=== PATIENT | female | born 1930 | race Caucasian/White ===

== ENCOUNTER 2017-02-13 06:24 | Inpatient (IN) | payer MEDICARE, BC ==
[2017-02-13] VITALS (8 sets, daily range): BP systolic 107–138; BP diastolic 44–75
[~2017-02-13] VITALS: Ht 160 cm; Wt 61.2 kg
[~2017-02-13 06:24] MED LIST changes: -CEPH250C11 PO; -CYA1000 PO; -DOCU-416 PO; -NAPR220C12 PO; -PANT40TA65 PO
[2017-02-13] MEDS ORDERED: EMS NS 0.9%(*) 1000 ML BAG 1,000 ML IV ONE (06:35)
--- NOTE | 2017-02-13 06:45 | ER Report ---
History and Physical Time Seen By MD: 06:33 Hx. of Stated Complaint: Fall walking back from bathroom. Laceration to head. Large amount of blood loss on scene. Patient arrives on backboard with c-collar in place (UNRULY VARGAS MD) HPI/ROS CHIEF COMPLAINT: fall with head injury HISTORY OF PRESENT ILLNESS: This is an 87 year old female. She fell while walking from the bathroom. She only complains of pain on the top of her head. Has a large amount of blood and injury to top of head. Denies other pain. She is alert and oriented. Denies visual changes. No pain in back. No pain in chest or abdomen. No pain in arms or legs. EMS responded and she is on a backboard and cervical collar in place. (UNRULY VARGAS MD) Allergies: Coded Allergies: No Known Drug Allergies (Unverified , 02/13/17) Home Meds Reported Medications Naproxen Sodium (ALEVE) 220 Mg Capsule, 220 MG PO TID Y for PAIN, CAPSULE 02/13/17 Pantoprazole Sodium (PANTOPRAZOLE SODIUM) 40 Mg Tablet.dr, 40 MG PO BID, TAB.SR 02/13/17 Cephalexin Monohydrate (CEPHALEXIN) 250 Mg Cap, 250 MG PO QDAY, CAP 02/13/17 Docusate Sodium (COLACE) 100 Mg Capsule, 100 MG PO, CAPSULE 02/13/17 Citalopram Hydrobromide (CITALOPRAM HBR) 20 Mg Tablet, 40 MG PO QDAY, #5 TAB 02/13/17 Cyanocobalamin (Vitamin B-12) (VITAMIN B-12) 1,000 Mcg Tablet, 1000 MCG PO 02/13/17 Polyethylene Glycol 3350 (MIRALAX) 17 Gm Powd.pack, 0.5 PACK PO QDAY 11/24/14 Amlodipine Besylate (AMLODIPINE BESYLATE) 5 Mg Tablet, 1 TAB PO QDAY, TAB 11/24/14 Aspirin (ASPIR 81) 81 Mg Tablet.dr, 1 TAB PO QDAY, TAB 11/24/14 Mirabegron (MYRBETRIQ) 25 Mg Tab.er.24h, 1 TAB PO QDAY 11/24/14 Trazodone Hcl (TRAZODONE HCL) 50 Mg Tablet, 1 TAB PO QHS 11/24/14 Hydralazine Hcl (HYDRALAZINE HCL) 25 Mg Tablet, 1 TAB PO QDAY, TAB 11/24/14 Acetaminophen (ACETAMINOPHEN) 500 Mg Tablet, 1 TAB PO TID, TAB 11/24/14 Tramadol Hcl (TRAMADOL HCL) 50 Mg Tablet, 1 TAB PO Q8H 11/24/14 Cholecalciferol (Vitamin D3) (VITAMIN D) 1,000 Unit Tablet, 1 TAB PO QDAY 11/24/14 Tamoxifen Citrate (TAMOXIFEN CITRATE) 20 Mg Tablet, 1 TAB PO QDAY 11/24/14 Discontinued Reported Medications Omeprazole (OMEPRAZOLE) 20 Mg Capsule.dr, 1 CAP PO QDAY, CAP 11/24/14 Citalopram Hydrobromide (CITALOPRAM HBR) 20 Mg Tablet, 1 TAB PO QDAY, #5 TAB 11/24/14 Reviewed Nurses Notes: Yes (UNRULY VARGAS MD) Constitutional Vital Sign - Last 24 Hours 02/13/17 02/13/17 02/13/17 02/13/17 06:24 06:24 06:30 06:39 Temp 97.4 Pulse 92 88 Resp 16 13 B/P (MAP) 124/74 124/74 (91) 131/66 (87) Pulse Ox 93 95 02/13/17 02/13/17 02/13/17 02/13/17 06:40 06:50 06:54 07:10 Pulse 86 Resp 15 B/P (MAP) 125/97 (106) 125/76 (92) 146/75 (98) Pulse Ox 92 02/13/17 02/13/17 02/13/17 07:15 07:20 07:30 Pulse 82 84 Resp 27 20 B/P (MAP) 123/49 (73) 108/52 (70) Pulse Ox 94 92 (CODY OCONNOR MD) Physical Exam General Appearance: The patient is alert. She is in no acute distress. Eyes: Pupils equal and round, no injection. Reactive to light. Extraocular movements intact. ENT: No dental or oral trauma. Respiratory: Chest is non-tender to palpation. Cardiac: Regular rate and rhythm. Gastrointestinal: Soft and non tender, there is no evidence of external or internal trauma by exam. Neurological: GCS 15. Alert and oriented x4. No focal deficits. Skin: Sever scalp laceration. Musculoskeletal: Head: Tender throughout the top of her scalp. Neck: The patient arrived in a cervical collar. The cervical spine is non-tender. Back: There is no thoracic or lumbar spine or paraspinal tenderness. Pelvis: Non-tender, no laxity with pelvic pressure. Extremities: Non tender to palpation. Full range of motion of the joints. DIFFERENTIAL DIAGNOSIS: After history and physical exam differential diagnosis was considered for trauma in a fall with head injury and severe scalp laceration. (UNRULY VARGAS MD) Medical Decision Making Data Points Result Diagram: 02/15/17 0600 02/15/17 0600 Laboratory Hematology Test 02/13/17 06:19 Red Blood Count 4.25 M/uL (4.17-5.56) Mean Corpuscular Volume 94.1 fL (80.0-96.0) Mean Corpuscular Hemoglobin 31.9 pg (26.0-33.0) Mean Corpuscular Hemoglobin Concent 33.9 g/dL (32.0-36.0) Red Cell Distribution Width 14.1 % (11.5-14.5) Mean Platelet Volume 8.6 fL (7.2-11.1) Neutrophils (%) (Auto) 36.8 % (39.4-72.5) Lymphocytes (%) (Auto) 52.6 % (17.6-49.6) Monocytes (%) (Auto) 7.1 % (4.1-12.4) Eosinophils (%) (Auto) 3.0 % (0.4-6.7) Basophils (%) (Auto) 0.5 % (0.3-1.4) Nucleated RBC Relative Count (auto) 0.1 /100WBC Neutrophils # (Auto) 2.4 K/uL (2.0-7.4) Lymphocytes # (Auto) 3.4 K/uL (1.3-3.6) Monocytes # (Auto) 0.5 K/uL (0.3-1.0) Eosinophils # (Auto) 0.2 K/uL (0.0-0.5) Basophils # (Auto) 0.0 K/uL (0.0-0.1) Nucleated RBC Absolute Count (auto) 0.01 K/uL Prothrombin Time 13.6 seconds (12.0-14.4) Prothromb Time International Ratio 1.04 Activated Partial Thromboplast Time 35 seconds (23-35) Sodium Level 135 mmol/L (137-145) Potassium Level 4.3 mmol/L (3.5-5.0) Chloride Level 101 mmol/L (98-107) Carbon Dioxide Level 24 mmol/L (22-31) Blood Urea Nitrogen 23 mg/dl (7-18) Creatinine 1.10 mg/dl (0.52-1.04) Glomerular Filtration Rate Calc 46.9 Random Glucose 113 mg/dl (75-110) Calcium Level 8.9 mg/dl (8.4-10.2) Chemistry Test 02/13/17 06:19 White Blood Count 6.5 k/uL (4.5-11.0) Red Blood Count 4.25 M/uL (4.17-5.56) Hemoglobin 13.6 g/dL (12.0-16.0) Hematocrit 40.0 % (34.0-47.0) Mean Corpuscular Volume 94.1 fL (80.0-96.0) Mean Corpuscular Hemoglobin 31.9 pg (26.0-33.0) Mean Corpuscular Hemoglobin Concent 33.9 g/dL (32.0-36.0) Red Cell Distribution Width 14.1 % (11.5-14.5) Platelet Count 200 K/uL (150-450) Mean Platelet Volume 8.6 fL (7.2-11.1) Neutrophils (%) (Auto) 36.8 % (39.4-72.5) Lymphocytes (%) (Auto) 52.6 % (17.6-49.6) Monocytes (%) (Auto) 7.1 % (4.1-12.4) Eosinophils (%) (Auto) 3.0 % (0.4-6.7) Basophils (%) (Auto) 0.5 % (0.3-1.4) Nucleated RBC Relative Count (auto) 0.1 /100WBC Neutrophils # (Auto) 2.4 K/uL (2.0-7.4) Lymphocytes # (Auto) 3.4 K/uL (1.3-3.6) Monocytes # (Auto) 0.5 K/uL (0.3-1.0) Eosinophils # (Auto) 0.2 K/uL (0.0-0.5) Basophils # (Auto) 0.0 K/uL (0.0-0.1) Nucleated RBC Absolute Count (auto) 0.01 K/uL Prothrombin Time 13.6 seconds (12.0-14.4) Prothromb Time International Ratio 1.04 Activated Partial Thromboplast Time 35 seconds (23-35) Glomerular Filtration Rate Calc 46.9 Calcium Level 8.9 mg/dl (8.4-10.2) Coagulation Test 02/13/17 06:19 Prothrombin Time 13.6 seconds Prothromb Time International Ratio 1.04 Activated Partial Thromboplast Time 35 seconds (CODY OCONNOR MD) EKG/Imaging Imaging HEAD W/O CONTRAST EXAMINATION: CT head/brain without contrast HISTORY: Trauma TECHNIQUE: Contiguous axial images were obtained from the skull base to the vertex without intravenous contrast. One of the following dose optimization techniques was utilized in the performance of this exam: Automated exposure control; adjustment of the mA and/ or kV according to the patient's size; or use of an iterative reconstruction technique. Specific details can be referenced in the facility's radiology CT exam operational policy. COMPARISON STUDIES: None FINDINGS: Ventricles/sulci/fissures: Midline in position and normal in configuration Masses/hemorrhage/midline shift: No parenchymal hemorrhage White matter: No white matter edema or contusion Rice-white differentiation: No cortical edema or contusion change Extra-axial spaces: No subdural or epidural fluid collections. No subarachnoid blood Dural venous sinuses/arterial structures: Negative Skull base/calvarium: Severe scalp laceration with over 8 cm defect in the scalp in its upper vertex aspect anteriorly extending to the right posterior parietal aspect of the skull. Large hematoma noted in the posterior aspect of the right upper skull. Air within the soft tissues. No underlying calvarial fracture Visualized mastoid air cells/paranasal sinuses: Negative IMPRESSION: 1. Negative CT scanner the head for acute intracranial pathology. Significant scalp laceration extending and exposing over 8 cm of the skull. Report Dictated By: Valdemar Michaels MD at 02/13/2017 7:44 AM C-SPINE W/O CONTRAST EXAMINATION: CT cervical spine Additional pertinent history: Fall COMPARISON STUDIES: None One of the following dose optimization techniques was utilized in the performance of this exam: Automated exposure control; adjustment of the mA and/ or kV according to the patient's size; or use of an iterative reconstruction technique. Specific details can be referenced in the facility's radiology CT exam operational policy. TECHNIQUE: Axial images were obtained from the skull base through the upper thoracic spine without IV contrast administration. Coronal and sagittal reformatted images were obtained from the axial source data. FINDINGS: Prevertebral soft tissues: Negative Alignment: Degenerative retrolisthesis of C5 with respect to C4 by 2 mm. Vertebral bodies: Pedicle fusion changes from the C1-2 through the C3-4 levels. Posterior elements: Fusion changes in the upper cervical spine. No obvious acute fracture. Fusion of the facet joints in the upper spine with significant degenerative ankylosing changes noted throughout the facet joints. Disc spaces: Diffuse disc degenerative changes throughout the cervical spine. Visualized soft tissues anterior neck: Negative Visualized lung/mediastinum: Negative IMPRESSION: Negative cervical spine for acute bony pathology. Postoperative fusion changes in the upper cervical spine as described. Report Dictated By: Valdemar Michaels MD at 02/13/2017 7:58 AM (UNRULY VARGAS MD) ED Course/Re-evaluation Decision to Disposition Date: Feb 13, 2017 Decision to Disposition Time: 09:00 (UNRULY VARGAS MD) ED Course 02/13/2017 8:34:[address] Jame zavala to discuss OR for repair of extensive scalp degloving. (CODY OCONNOR MD) Depart Departure Latest Vital Signs Vital Signs Date Time Temp Pulse Resp B/P (MAP) Pulse Ox O2 Delivery O2 Flow Rate FiO2 02/13/17 07:30 84 20 108/52 (70) 92 02/13/17 06:24 97.4 (CODY OCONNOR MD) Impression: Primary Impression: Scalp laceration Condition: Condition Unchanged Disposition: Admitted from ER Problem Qualifiers Primary Impression: Scalp laceration Encounter type: initial encounter Qualified Codes: S01.01XA - Laceration without foreign body of scalp, initial encounter UNRULY VARGAS MD Feb 13, 2017 06:45 CODY OCONNOR MD Feb 13, 2017 08:35
[2017-02-13] MEDS ORDERED: CYA1000 PO (06:55)
[2017-02-13] MEDS ORDERED: PANT40TA65 PO (06:55)
[2017-02-13] MEDS ORDERED: CEPH250C11 PO (06:55)
[2017-02-13] MEDS ORDERED: NAPR220C12 PO (06:55)
[2017-02-13] MEDS ORDERED: CITA-139 PO (06:55)
[2017-02-13] MEDS ORDERED: DOCU-416 PO (06:55)
[2017-02-13 07:49] LABS: PLATELET COUNT, AUTOMATED 200 K/uL (150-450)
[2017-02-13 07:55] LABS: INR 1.04
--- NOTE | 2017-02-13 08:02 | RADIOLOGY IMAGING REPORT ---
FACILITY: [facility] PATIENT NAME: Sabra Orozco : 1930 MR: [id number] V: [id number] EXAM DATE: ORDERING PHYSICIAN: UNRULY VARGAS TECHNOLOGIST: Location: [facility] Patient: Sabra Orozco : 1930 Visit/Account:[id number] Date of Sevice: 02/13/2017 HEAD W/O CONTRAST EXAMINATION: CT head/brain without contrast HISTORY: Trauma TECHNIQUE: Contiguous axial images were obtained from the skull base to the vertex without intravenou s contrast. One of the following dose optimization techniques was utilized in the performance of this exam: Autom ated exposure control; adjustment of the mA and/or kV according to the patient's size; or use of an i terative reconstruction technique. Specific details can be referenced in the facility's radiology C T exam operational policy. COMPARISON STUDIES: None FINDINGS: Ventricles/sulci/fissures: Midline in position and normal in configuration Masses/hemorrhage/midline shift: No parenchymal hemorrhage White matter: No white matter edema or contusion Rice-white differentiation: No cortical edema or contusion change Extra-axial spaces: No subdural or epidural fluid collections. No subarachnoid blood Dural venous sinuses/arterial structures: Negative Skull base/calvarium: Severe scalp laceration with over 8 cm defect in the scalp in its upper vertex aspect anteriorly extending to the right posterior parietal aspect of the skull. Large hematoma noted in the posterior aspect of the right upper skull. Air within the soft tissues. No underlying calvari al fracture Visualized mastoid air cells/paranasal sinuses: Negative IMPRESSION: 1. Negative CT scanner the head for acute intracranial pathology. Significant scalp laceration extend ing and exposing over 8 cm of the skull. Report Dictated By: Valdemar Michaels MD at 02/13/2017 7:44 AM Report E-Signed By: Valdemar Michaels MD at 02/13/2017 7:58 AM WSN:[id number]
--- NOTE | 2017-02-13 08:05 | RADIOLOGY IMAGING REPORT ---
FACILITY: [facility] [place] PATIENT NAME: Sabra Orozco : 1930 MR: [id number] V: [id number] EXAM DATE: ORDERING PHYSICIAN: UNRULY VARGAS TECHNOLOGIST: Location: [facility] - [place], [place] Patient: Sabra Orozco : 1930 Visit/Account:[id number] Date of Sevice: 02/13/2017 C-SPINE W/O CONTRAST EXAMINATION: CT cervical spine with contrast C-SPINE W/O CONTRAST EXAMINATION: CT cervical spine Additional pertinent history: Fall COMPARISON STUDIES: None One of the following dose optimization techniques was utilized in the performance of this exam: Autom ated exposure control; adjustment of the mA and/or kV according to the patient's size; or use of an i terative reconstruction technique. Specific details can be referenced in the facility's radiology C T exam operational policy. TECHNIQUE: Axial images were obtained from the skull base through the upper thoracic spine without IV contrast administration. Coronal and sagittal reformatted images were obtained from the axial source data. FINDINGS: Prevertebral soft tissues: Negative Alignment: Degenerative retrolisthesis of C5 with respect to C4 by 2 mm. Vertebral bodies: Pedicle fusion changes from the C1-2 through the C3-4 levels. Posterior elements: Fusion changes in the upper cervical spine. No obvious acute fracture. Fusion of the facet joints in the upper spine with significant degenerative ankylosing changes noted throughout the facet joints. Disc spaces: Diffuse disc degenerative changes throughout the cervical spine. Visualized soft tissues anterior neck: Negative Visualized lung/mediastinum: Negative IMPRESSION: Negative cervical spine for acute bony pathology. Postoperative fusion changes in the upper cervical spine as described. Report Dictated By: Valdemar Michaels MD at 02/13/2017 7:58 AM Report E-Signed By: Valdemar Michaels MD at 02/13/2017 8:02 AM WSN:[id number]
[2017-02-13] MEDS ORDERED: ONDANSETRON 4 MG/2 ML VIAL IVP ONE (08:10)
[2017-02-13] MEDS ORDERED: fentaNYL CITR 100 MCG/2 ML AMP IVP ONE (08:10)
[2017-02-13] MEDS ORDERED: FAMOTIDINE(*) 20MG/50ML PREMIX 50 ML IVPB ONE (09:20)
[2017-02-13] MEDS ORDERED: LR(*) 1000 ML BAG 1,000 ML IV PRN (09:20)
[2017-02-13] MEDS ORDERED: AMPICILLIN/SULBACT (*) 3 GM VL 3 GM in NS(*) 0.9% 100 ML BAG 100 ML IVPB ONE (09:30)
--- NOTE | 2017-02-13 09:41 | EKG ---
FACILITY: [facility] [place] PATIENT NAME: GUSTAVO MONTEJO : [id number] MR: [id number] V: [id number] EXAM DATE: ORDERING PHYSICIAN: CODY OCONNOR TECHNOLOGIST: Test Reason : Blood Pressure : / mmHG Vent. Rate : 085 BPM Atrial Rate : 084 BPM P-R Int : 204 ms QRS Dur : 078 ms QT Int : 388 ms P-R-T Axes : 044 043 086 degrees QTc Int : 461 ms Normal sinus rhythm with borderline first degree AV block Nonspecific T wave abnormality Abnormal ECG No previous ECGs available Confirmed by ISHAN JOSE ([id number]) on 02/13/2017 11:26:16 AM Referred By: Confirmed By:ISHAN JOSE
--- NOTE | 2017-02-13 10:09 | Gen Surgery History & Physical ---
History of Present Illness Chief Complaint Fall with complex scalp laceration History of Present Illness 87yo female tripped over a dresser this morning and struck her head on the dresser injuring her scalp. No LOC. She had no preceding symptoms; she reports she simply tripped over the carpet. Her only symptom is scalp pain. She has some lower back pain due to laying on her back which is a chronic symptom for her when she lays on her back. No SOB, chest pain, abdominal pain, or extremity pain. History Problems: (1) Hypertension Status: Chronic (2) History of breast cancer Status: Chronic (3) H/O cervical spinal arthrodesis Status: Chronic Home Meds Reported Medications Naproxen Sodium (ALEVE) 220 Mg Capsule, 220 MG PO TID, CAPSULE 02/13/17 Pantoprazole Sodium (PANTOPRAZOLE SODIUM) 40 Mg Tablet.dr, 40 MG PO BID, TAB.SR 02/13/17 Cephalexin Monohydrate (CEPHALEXIN) 250 Mg Cap, 250 MG PO QDAY, CAP 02/13/17 Docusate Sodium (COLACE) 100 Mg Capsule, 100 MG PO, CAPSULE 02/13/17 Citalopram Hydrobromide (CITALOPRAM HBR) 20 Mg Tablet, 40 MG PO QDAY, #5 TAB 02/13/17 Cyanocobalamin (Vitamin B-12) (VITAMIN B-12) 1,000 Mcg Tablet, 1000 MCG PO 02/13/17 Polyethylene Glycol 3350 (MIRALAX) 17 Gm Powd.pack, 0.5 PACK PO QDAY 11/24/14 Omeprazole (OMEPRAZOLE) 20 Mg Capsule.dr, 1 CAP PO QDAY, CAP 11/24/14 Amlodipine Besylate (AMLODIPINE BESYLATE) 5 Mg Tablet, 1 TAB PO QDAY, TAB 11/24/14 Aspirin (ASPIR 81) 81 Mg Tablet.dr, 1 TAB PO QDAY, TAB 11/24/14 Mirabegron (MYRBETRIQ) 25 Mg Tab.er.24h, 1 TAB PO QDAY 11/24/14 Trazodone Hcl (TRAZODONE HCL) 50 Mg Tablet, 1 TAB PO QHS 11/24/14 Hydralazine Hcl (HYDRALAZINE HCL) 25 Mg Tablet, 1 TAB PO QDAY, TAB 11/24/14 Acetaminophen (ACETAMINOPHEN) 500 Mg Tablet, 1 TAB PO TID, TAB 10/14/15 Tramadol Hcl (TRAMADOL HCL) 50 Mg Tablet, 1 TAB PO Q8H 11/24/14 Cholecalciferol (Vitamin D3) (VITAMIN D) 1,000 Unit Tablet, 1 TAB PO QDAY 11/24/14 Tamoxifen Citrate (TAMOXIFEN CITRATE) 20 Mg Tablet, 1 TAB PO QDAY 11/24/14 Discontinued Reported Medications Citalopram Hydrobromide (CITALOPRAM HBR) 20 Mg Tablet, 1 TAB PO QDAY, #5 TAB 11/24/14 Allergies: Coded Allergies: No Known Drug Allergies (Unverified , 02/13/17) Review of Systems All Systems Reviewed/Normal: Yes, Except as Noted Exam General Appearance: Alert, Awake, No Acute Distress, Afebrile Neuro: No Gross deficits Eyes: PERRLA ENT: Oropharynx Clear, Other (There is a large scalp laceration with the scalp raised up from the underlying skull forming a tissue flap that involves most of her right temporal and parietal scalp. The underlying skull is readily visible. ) Neck: No Masses Cardiovascular: Regular Rate and Rhythm Respiratory: Clear to Auscultation GI: Abd Soft and Non-Tender Musculoskeletal: No Weakness/Pain Extremities: Warm, Perfused, Other (No deformities in her extremities. Neuroligically intact in all 4 extremities) Psych: Appropriate Mood & Affect Medical Decision Making Data Points Result Diagram: 02/13/1761802/13/17618 Assessment and Plan Problems: (1) Laceration of scalp without complication Status: Acute Assessment & Plan: Will admit and take to OR for scalp washout and closure. No evidence of other injury based on exam and CT head and c-spine don't reveal any other evidence of acute injury other than the scalp laceration. Will then admit for observation overnight. Procedure explained to the patient and her son -in-law who is the only family present in the room and they both indicate their understanding and they seem agreeable with this plan. Condition Stable. Time Spent: < 30 min Venous Thromboembolism VTE Risk Physician Assess for VTE Risk: Yes Patient's VTE Risk: Low VTE Diagnostic Test 2 Days Prior to Admit: No Antithrombotics Is Pt On Any Antithrombotics?: No Prophylaxis Tx Contraindicated Pharmacological Contraindicati: Active Bleeding Problem Qualifiers (1) Laceration of scalp without complication: Encounter type: initial encounter Qualified Codes: S01.01XA - Laceration without foreign body of scalp, initial encounter PETER DUNBAR MD Feb 13, 2017 10:09
[2017-02-13] MEDS ORDERED: SUCCINYLCHOL CHL 200MG/10ML VL ONE (11:37)
[2017-02-13] MEDS ORDERED: PROPOFOL EMUL(*) 10MG/ML 20 ML 20 ML ONE (11:37)
[2017-02-13] MEDS ORDERED: BACITRACIN OINT 15 GM TUBE TP ONE (11:51)
[2017-02-13] MEDS ORDERED: ROPIVACAINE 0.5% 20 ML VIAL ONE (11:53)
[2017-02-13] MEDS ORDERED: fentaNYL CITR 100 MCG/2 ML AMP ONE (12:03)
[2017-02-13] MEDS ORDERED: NS 0.9% 3000 ML IRRIGATION BAG IR ONE (12:23)
[2017-02-13] MEDS ORDERED: PHENYLEPHRINE/NS/PF 0.4MG/10ML ONE (12:23)
[2017-02-13] MEDS ORDERED: ONDANSETRON 4 MG/2 ML VIAL IVP PRN (13:00)
[2017-02-13] MEDS ORDERED: NS(*) 0.9% 1000 ML BAG 1,000 ML IV PRN (13:00)
[2017-02-13] MEDS ORDERED: FLUSH 10 ML SYR IVP PRN (13:00)
[2017-02-13] MEDS: fentaNYL CITR 100 MCG/2 ML AMP ONE ×2 (13:15→13:18)
[2017-02-13] MEDS: PIPERACILLIN/TAZO*3.375GM VIAL 3.375 GM in NS(*) 0.9% 100 ML ADDVANT BAG 100 ML IVPB SCH ×2 (13:51→20:00)
--- NOTE | 2017-02-13 15:53 | Post Operative Progress Note ---
Post Operative Progress Note Date: Feb 13, 2017 Time: 13:03 Surgeon: Mary Dictation number: [id number] on M*Modal Anesthesia: GETA by Dr. Costa Pre-Op Diagnosis: Scalp degloving injury Post-Op Diagnosis: BERNABE Findings: C/W dx Procedure(s): Scalp washout and repair of complex scalp lac Specimen Removed:(May be N/A): None Complications: None Fluids: See anesthesia record Estimated Blood Loss: Minimal Date OP Note Dictated: Feb 13, 2017 Time OP Note Dictated: 13:04 PETER DUNBAR MD Feb 13, 2017 13:05
[2017-02-13] MEDS: DOCUSATE SODIUM 100 MG CAP PO SCH (20:10)
--- NOTE | 2017-02-13 20:38 | OPERATIVE REPORT 1 ---
EVENT DATE: February 13, 2017 SURGEON: Hank Hernandez MD ANESTHESIOLOGIST: John Costa MD ANESTHESIA: General endotracheal anesthesia. PREOPERATIVE DIAGNOSIS Complex scalp laceration with degloving injury. POSTOPERATIVE DIAGNOSIS Complex scalp laceration with degloving injury. PROCEDURE PERFORMED Scalp washout with multilayer repair of degloving injury. COMPLICATIONS None. CONDITION Stable. BLOOD LOSS Minimal. FINDINGS The patient had a significant degloving injury including a laceration that had two arms to it, each arm measuring approximately 11 cm. The galea aponeurotica was also lacerated, and the underlying skull was readily visible. SPECIMENS None. INDICATIONS This is an 87-year-old female who got out of bed this morning and tripped over the carpet. She fell forward striking her head on the dresser. There was no loss of consciousness, and she reports that she remembers the entire event. She came to the emergency room, and staff noticed a large degloving scalp injury. They contacted me for further evaluation and management. DESCRIPTION OF PROCEDURE The patient was brought to the operating room and placed supine on the operating table. General endotracheal anesthesia was administered, and she was placed in the left lateral decubitus position. Her scalp was prepped with Betadine and draped in a sterile fashion. I then used 3 L of gentamicin-laden normal saline and irrigated out the wound. I then made it hemostatic mostly with pressure because there was not a whole lot of oozing except from a few small skin bleeders. I then reapproximated the galea aponeurotica with running 3-0 Vicryl sutures, and then the laceration was closed with running 3-0 Vicryl deep dermal sutures and then skin ana. Her skin was cleaned and dried. Bacitracin antibiotic ointment was placed to the laceration, and then her head was wrapped in 4 x 4 gauze, Kerlix, and then net burn dressing. She was then awakened and extubated in the operating room and transported to the recovery room in stable condition having tolerated the procedure without any apparent problems. PIETER
[2017-02-14] VITALS (12 sets, daily range): BP systolic 114–167; BP diastolic 46–71; Ht 160 cm; Wt 61.2 kg
[2017-02-14] MEDS: PIPERACILLIN/TAZO*3.375GM VIAL 3.375 GM in NS(*) 0.9% 100 ML ADDVANT BAG 100 ML IVPB SCH ×4 (02:05→20:27)
[2017-02-14] MEDS: MORPHINE 2 MG/ML SYR IVP PRN ×2 (03:48→07:06)
--- NOTE | 2017-02-14 05:16 | General Surgery Progress Note ---
Subjective Progress Notes Subjective Feels weak this morning. Not much pain, no N/V. Physical Exam Vital Signs Date Time Temp Pulse Resp B/P (MAP) Pulse Ox O2 Delivery O2 Flow Rate FiO2 02/14/17 01:47 98.3 87 22 116/61 (79) 95 Nasal Cannula 2.0 General Appearance: Alert, Awake, No Acute Distress, Afebrile Neuro: No Gross deficits Eyes: PERRLA ENT: Other (Head dressing is C/D/I.) Extremities: Warm, Perfused Result Diagram: 02/13/1761802/13/17618 Assessment and Plan Problems: (1) Laceration of scalp without complication Status: Acute Assessment & Plan: 02/13/17: Will admit and take to OR for scalp washout and closure. No evidence of other injury based on exam and CT head and c-spine don' t reveal any other evidence of acute injury other than the scalp laceration. Will then admit for observation overnight. Procedure explained to the patient and her son-in-law who is the only family present in the room and they both indicate their understanding and they seem agreeable with this plan. 02/14/17: Doing well. Will leave dressing on today and remove it tomorrow. PT/ OT today. She can go home when she's able to ambulate independently without problems. Condition Stable. Time Spent: < 30 min Exam Sepsis Risk: No Definite Risk Problem Qualifiers (1) Laceration of scalp without complication: Encounter type: initial encounter Qualified Codes: S01.01XA - Laceration without foreign body of scalp, initial encounter PETER DUNBAR MD Feb 14, 2017 05:16
[2017-02-14 06:16] LABS: PLATELET COUNT, AUTOMATED 127 K/uL (150-450)
[2017-02-14] MEDS: PANTOPRAZOLE SOD 40 MG TABEC PO SCH (08:08)
[2017-02-14] MEDS: DOCUSATE SODIUM 100 MG CAP PO SCH ×2 (08:08→20:28)
[2017-02-14] MEDS ORDERED: NS(*) 0.9% 500 ML BAG 500 ML IV ONE (08:10)
[2017-02-14] MEDS ORDERED: PANTOPRAZOLE SOD 40 MG IV VIAL IVP SCH (09:00)
[2017-02-14] MEDS: traZODone HCL 50 MG TAB PO SCH (20:27)
[2017-02-15] MEDS: PIPERACILLIN/TAZO*3.375GM VIAL 3.375 GM in NS(*) 0.9% 100 ML ADDVANT BAG 100 ML IVPB SCH (02:38)
[2017-02-15 06:17] LABS: PLATELET COUNT, AUTOMATED 116 K/uL (150-450)
--- NOTE | 2017-02-15 06:40 | General Surgery Progress Note ---
Subjective Progress Notes Subjective Not sure how's she's feeling yet this morning. Doesn't seem to be in much pain. Feels weak. Physical Exam Vital Signs Date Time Temp Pulse Resp B/P (MAP) Pulse Ox O2 Delivery O2 Flow Rate FiO2 02/14/17 23:33 98.3 64 16 167/71 (103) 96 Nasal Cannula 1.0 General Appearance: Alert, Awake, No Acute Distress, Afebrile Neuro: No Gross deficits Eyes: PERRLA ENT: Other (Head dressing is C/D/I.) Extremities: Warm, Perfused Result Diagram: 02/15/17 0600 02/15/17 0600 Assessment and Plan Problems: (1) Laceration of scalp without complication Status: Acute Assessment & Plan: 02/13/17: Will admit and take to OR for scalp washout and closure. No evidence of other injury based on exam and CT head and c-spine don' t reveal any other evidence of acute injury other than the scalp laceration. Will then admit for observation overnight. Procedure explained to the patient and her son-in-law who is the only family present in the room and they both indicate their understanding and they seem agreeable with this plan. 02/14/17: Doing well. Will leave dressing on today and remove it tomorrow. PT/ OT today. She can go home when she's able to ambulate independently without problems. 02/15/17: Doing well. Will see what PT/OT thinks about her today and if she's safe to be discharged. H/H with supratherapeutic increase after 2 units of pRBC yesterday, no signs of on-going bleeding. Will come back and remove the head dressing later today. Condition Stable. Time Spent: < 30 min Exam Sepsis Risk: No Definite Risk Problem Qualifiers (1) Laceration of scalp without complication: Encounter type: initial encounter Qualified Codes: S01.01XA - Laceration without foreign body of scalp, initial encounter PETER DUNBAR MD Feb 15, 2017 06:40
[2017-02-15 07:42] VITALS: BP 161/86
[2017-02-15] MEDS: POLYETHYLENE GLYCOL 17 GM PKT PO SCH (08:54)
[2017-02-15] MEDS: ASPIRIN 81 MG ENTERIC COATED PO SCH (08:54)
[2017-02-15] MEDS: DOCUSATE SODIUM 100 MG CAP PO SCH ×2 (08:55→21:01)
[2017-02-15] MEDS: CITALOPRAM HYDROBROM 20 MG TAB PO SCH (08:55)
[2017-02-15] MEDS: CHOLECALCIFEROL 1000 UNIT TAB PO SCH (08:55)
[2017-02-15] MEDS: PANTOPRAZOLE SOD 40 MG TABEC PO SCH (08:55)
[2017-02-15] MEDS: MIRABEGRON 25 MG ER TAB PO SCH (08:55)
[2017-02-15] MEDS: hydrALAZINE HCL 25 MG TAB PO SCH (08:55)
[2017-02-15] MEDS: amLODIPine BESYL(*) 5 MG TAB PO SCH (08:55)
[2017-02-15] MEDS: TAMOXIFEN CITRATE 10 MG TAB PO SCH (08:55)
[2017-02-15] MEDS: CEPHALEXIN MONO 250 MG CAP PO SCH (08:55)
[2017-02-15] MEDS: AMOX/CLAV 500 MG TAB PO SCH ×2 (09:09→17:41)
[2017-02-15 11:17] VITALS: BP 148/54
[2017-02-15 15:23] VITALS: BP 133/66
[2017-02-15] MEDS: ACETAMINOPHEN 325 MG TAB PO PRN (17:41)
[2017-02-15 19:41] VITALS: BP 151/73
[2017-02-15] MEDS: traZODone HCL 50 MG TAB PO SCH (21:01)
[2017-02-15 22:34] VITALS: BP 112/73
[2017-02-16 06:12] VITALS: BP 156/80
[2017-02-16] MEDS: DOCUSATE SODIUM 100 MG CAP PO SCH ×2 (09:00→21:00)
[2017-02-16] MEDS: POLYETHYLENE GLYCOL 17 GM PKT PO SCH (09:00)
[2017-02-16 09:12] VITALS: BP 153/70
[2017-02-16] MEDS: MIRABEGRON 25 MG ER TAB PO SCH (09:28)
[2017-02-16] MEDS: CHOLECALCIFEROL 1000 UNIT TAB PO SCH (09:28)
[2017-02-16] MEDS: ACETAMINOPHEN 325 MG TAB PO PRN (09:29)
[2017-02-16] MEDS: CEPHALEXIN MONO 250 MG CAP PO SCH (09:29)
[2017-02-16] MEDS: ASPIRIN 81 MG ENTERIC COATED PO SCH (09:29)
[2017-02-16] MEDS: TAMOXIFEN CITRATE 10 MG TAB PO SCH (09:29)
[2017-02-16] MEDS: AMOX/CLAV 500 MG TAB PO SCH ×2 (09:29→17:27)
[2017-02-16] MEDS: CITALOPRAM HYDROBROM 20 MG TAB PO SCH (09:29)
[2017-02-16] MEDS: PANTOPRAZOLE SOD 40 MG TABEC PO SCH (09:29)
[2017-02-16] MEDS: amLODIPine BESYL(*) 5 MG TAB PO SCH (09:30)
[2017-02-16] MEDS: hydrALAZINE HCL 25 MG TAB PO SCH (09:32)
--- NOTE | 2017-02-16 10:14 | General Surgery Progress Note ---
Subjective Progress Notes Subjective "I'm stronger today." Physical Exam Vital Signs Date Time Temp Pulse Resp B/P (MAP) Pulse Ox O2 Delivery O2 Flow Rate FiO2 02/16/17 06:12 97.7 65 20 156/80 (105) 93 Room Air 02/15/17 07:42 2.0 Intake and Output 02/17/17 07:01 Intake Total 0 ml Balance 0 ml Intake Oral 0 ml General Appearance: Alert, Awake ENT: Other (remarkable very large scalp laceration (R), old blood present.) Cardiovascular: Other (sinus irregularity, no murmurs.) Respiratory: Clear to Auscultation Extremities: Warm, Other (without edema) Result Diagram: 02/15/17 0600 02/15/17 0600 Assessment and Plan Problems: (1) Laceration of scalp without complication Status: Acute Assessment & Plan: 02/13/17: Will admit and take to OR for scalp washout and closure. No evidence of other injury based on exam and CT head and c-spine don' t reveal any other evidence of acute injury other than the scalp laceration. Will then admit for observation overnight. Procedure explained to the patient and her son-in-law who is the only family present in the room and they both indicate their understanding and they seem agreeable with this plan. 02/14/17: Doing well. Will leave dressing on today and remove it tomorrow. PT/ OT today. She can go home when she's able to ambulate independently without problems. 02/15/17: Doing well. Will see what PT/OT thinks about her today and if she's safe to be discharged. H/H with supratherapeutic increase after 2 units of pRBC yesterday, no signs of on-going bleeding. Will come back and remove the head dressing later today. 02/16/17: Improved. Repaired scalp laceration examined last night with no significant oozing and good approximation of the wound edges with ana. Stronger today per therapy but still with recommendations for ongoing rehab. Awaiting bed at [facility] in [place]. Time Spent: < 30 min Exam Sepsis Risk: No Definite Risk Problem Qualifiers (1) Laceration of scalp without complication: Encounter type: subsequent encounter Qualified Codes: S01.01XD - Laceration without foreign body of scalp, subsequent encounter ASIF SCRUGGS MD Feb 16, 2017 10:14
[2017-02-16 16:00] VITALS: BP 118/75
[2017-02-16 18:56] VITALS: BP 155/64
[2017-02-16] MEDS: traZODone HCL 50 MG TAB PO SCH (21:52)
[2017-02-17 00:15] VITALS: BP 125/54
[2017-02-17 02:58] VITALS: BP 139/69
[2017-02-17 08:07] VITALS: BP 143/78
[2017-02-17] MEDS: amLODIPine BESYL(*) 5 MG TAB PO SCH (08:16)
[2017-02-17] MEDS: POLYETHYLENE GLYCOL 17 GM PKT PO SCH (08:16)
[2017-02-17] MEDS: AMOX/CLAV 500 MG TAB PO SCH ×2 (08:16→17:37)
[2017-02-17] MEDS: TAMOXIFEN CITRATE 10 MG TAB PO SCH (08:16)
[2017-02-17] MEDS: CHOLECALCIFEROL 1000 UNIT TAB PO SCH (08:16)
[2017-02-17] MEDS: CEPHALEXIN MONO 250 MG CAP PO SCH (08:16)
[2017-02-17] MEDS: DOCUSATE SODIUM 100 MG CAP PO SCH ×3 (08:16→21:32)
[2017-02-17] MEDS: hydrALAZINE HCL 25 MG TAB PO SCH (08:16)
[2017-02-17] MEDS: MIRABEGRON 25 MG ER TAB PO SCH (08:16)
[2017-02-17] MEDS: CITALOPRAM HYDROBROM 20 MG TAB PO SCH (08:16)
[2017-02-17] MEDS: PANTOPRAZOLE SOD 40 MG TABEC PO SCH (08:16)
[2017-02-17] MEDS: ASPIRIN 81 MG ENTERIC COATED PO SCH (08:16)
--- NOTE | 2017-02-17 10:18 | General Surgery Progress Note ---
Subjective Progress Notes Subjective It was good to get all that blood out of my hair! Physical Exam Vital Signs Date Time Temp Pulse Resp B/P (MAP) Pulse Ox O2 Delivery O2 Flow Rate FiO2 02/17/17 02:58 88 02/17/17 02:58 98.5 83 14 139/69 (92) Nasal Cannula 0.5 Intake and Output 02/18/17 07:01 Intake Total 330 ml Balance 330 ml Intake Oral 330 ml General Appearance: Alert, Awake, Other (sitting up in chair) Cardiovascular: Other (slightly irregular) Respiratory: Clear to Auscultation GI: Soft and Non-Tender, Other (+ flatus, + bowel movment) Integumentary: Other (well approximated and healing right sided scalp laceration, without ongoing bleeding) Result Diagram: 02/15/17 0600 02/15/17 0600 Assessment and Plan Problems: (1) Laceration of scalp without complication Status: Acute Assessment & Plan: 02/13/17: Will admit and take to OR for scalp washout and closure. No evidence of other injury based on exam and CT head and c-spine don' t reveal any other evidence of acute injury other than the scalp laceration. Will then admit for observation overnight. Procedure explained to the patient and her son-in-law who is the only family present in the room and they both indicate their understanding and they seem agreeable with this plan. 02/14/17: Doing well. Will leave dressing on today and remove it tomorrow. PT/ OT today. She can go home when she's able to ambulate independently without problems. 02/15/17: Doing well. Will see what PT/OT thinks about her today and if she's safe to be discharged. H/H with supratherapeutic increase after 2 units of pRBC yesterday, no signs of on-going bleeding. Will come back and remove the head dressing later today. 02/16/17: Improved. Repaired scalp laceration examined last night with no significant oozing and good approximation of the wound edges with ana. Stronger today per therapy but still with recommendations for ongoing rehab. Awaiting bed at [facility] in [place]. 02/17/17: Continues to do well. No issues. Awaiting bed in [place]. PT note from yesterday notes improvement but continued need for rehab. Exam Sepsis Risk: No Definite Risk Problem Qualifiers (1) Laceration of scalp without complication: Encounter type: subsequent encounter Qualified Codes: S01.01XD - Laceration without foreign body of scalp, subsequent encounter ASIF SCRUGGS MD Feb 17, 2017 10:18
[2017-02-17 18:21] VITALS: BP 141/61
[2017-02-17] MEDS: traZODone HCL 50 MG TAB PO SCH (21:31)
[2017-02-18 03:18] VITALS: BP 151/67
[2017-02-18 07:52] VITALS: BP 158/77
[2017-02-18] MEDS: ACETAMINOPHEN 325 MG TAB PO PRN (07:54)
[2017-02-18] MEDS: AMOX/CLAV 500 MG TAB PO SCH ×2 (07:54→16:16)
--- NOTE | 2017-02-18 08:15 | General Surgery Progress Note ---
Subjective Progress Notes Subjective No complaints. Physical Exam Vital Signs Date Time Temp Pulse Resp B/P (MAP) Pulse Ox O2 Delivery O2 Flow Rate FiO2 02/18/17 07:55 94 Room Air 02/18/17 07:52 98.2 72 18 158/77 (104) 02/17/17 02:58 0.5 Intake and Output 02/19/17 07:01 Intake Total 60 ml Balance 60 ml Intake Oral 60 ml # Voids 1 General Appearance: Alert, Awake, No Acute Distress, Afebrile Integumentary: Other (Scalp laceration is clean and dry, ana are intact.) Result Diagram: 02/15/17 0600 02/15/17 0600 Assessment and Plan Problems: (1) Laceration of scalp without complication Status: Acute Assessment & Plan: 02/13/17: Will admit and take to OR for scalp washout and closure. No evidence of other injury based on exam and CT head and c-spine don' t reveal any other evidence of acute injury other than the scalp laceration. Will then admit for observation overnight. Procedure explained to the patient and her son-in-law who is the only family present in the room and they both indicate their understanding and they seem agreeable with this plan. 02/14/17: Doing well. Will leave dressing on today and remove it tomorrow. PT/ OT today. She can go home when she's able to ambulate independently without problems. 02/15/17: Doing well. Will see what PT/OT thinks about her today and if she's safe to be discharged. H/H with supratherapeutic increase after 2 units of pRBC yesterday, no signs of on-going bleeding. Will come back and remove the head dressing later today. 02/16/17: Improved. Repaired scalp laceration examined last night with no significant oozing and good approximation of the wound edges with ana. Stronger today per therapy but still with recommendations for ongoing rehab. Awaiting bed at [facility] in [place]. 02/17/17: Continues to do well. No issues. Awaiting bed in [place]. PT note from yesterday notes improvement but continued need for rehab. 02/18/17: Doing well. Ready for transfer to rehab in [place] whenever bed becomes available. Condition Stable. Time Spent: < 30 min Exam Sepsis Risk: No Definite Risk Problem Qualifiers (1) Laceration of scalp without complication: Encounter type: subsequent encounter Qualified Codes: S01.01XD - Laceration without foreign body of scalp, subsequent encounter PETER DUNBAR MD Feb 18, 2017 08:15
[2017-02-18] MEDS: CITALOPRAM HYDROBROM 20 MG TAB PO SCH (09:14)
[2017-02-18] MEDS: CHOLECALCIFEROL 1000 UNIT TAB PO SCH (09:14)
[2017-02-18] MEDS: ASPIRIN 81 MG ENTERIC COATED PO SCH (09:14)
[2017-02-18] MEDS: amLODIPine BESYL(*) 5 MG TAB PO SCH (09:14)
[2017-02-18] MEDS: hydrALAZINE HCL 25 MG TAB PO SCH (09:14)
[2017-02-18] MEDS: DOCUSATE SODIUM 100 MG CAP PO SCH ×2 (09:14→21:43)
[2017-02-18] MEDS: PANTOPRAZOLE SOD 40 MG TABEC PO SCH (09:14)
[2017-02-18] MEDS: CEPHALEXIN MONO 250 MG CAP PO SCH (09:15)
[2017-02-18] MEDS: MIRABEGRON 25 MG ER TAB PO SCH (09:15)
[2017-02-18] MEDS: POLYETHYLENE GLYCOL 17 GM PKT PO SCH (09:15)
[2017-02-18] MEDS: TAMOXIFEN CITRATE 10 MG TAB PO SCH (09:15)
[2017-02-18 12:06] VITALS: BP 163/85
[2017-02-18 16:12] VITALS: BP 132/70
[2017-02-18 18:41] VITALS: BP 143/68
[2017-02-18] MEDS: traZODone HCL 50 MG TAB PO SCH (21:43)
[2017-02-18 23:18] VITALS: BP 143/80
[2017-02-19 03:08] VITALS: BP 125/53
[2017-02-19 08:07] VITALS: BP 147/80
--- NOTE | 2017-02-19 08:15 | Short(Outpt) Discharge Summary ---
Discharge Summary Reason for Hosp/Final Diag: (1) Laceration of scalp without complication Status: Acute Hospital Course & Plan: 02/13/17: Will admit and take to OR for scalp washout and closure. No evidence of other injury based on exam and CT head and c-spine don't reveal any other evidence of acute injury other than the scalp laceration. Will then admit for observation overnight. Procedure explained to the patient and her son-in-law who is the only family present in the room and they both indicate their understanding and they seem agreeable with this plan. 02/14/17: Doing well. Will leave dressing on today and remove it tomorrow. PT/ OT today. She can go home when she's able to ambulate independently without problems. 02/15/17: Doing well. Will see what PT/OT thinks about her today and if she's safe to be discharged. H/H with supratherapeutic increase after 2 units of pRBC yesterday, no signs of on-going bleeding. Will come back and remove the head dressing later today. 02/16/17: Improved. Repaired scalp laceration examined last night with no significant oozing and good approximation of the wound edges with ana. Stronger today per therapy but still with recommendations for ongoing rehab. Awaiting bed at [facility] in [place]. 02/17/17: Continues to do well. No issues. Awaiting bed in [place]. PT note from yesterday notes improvement but continued need for rehab. 02/18/17: Doing well. Ready for transfer to rehab in [place] whenever bed becomes available. 02/19/17: Doing well. Laceration/staple line looks excellent, no erythema or drainage, entire laceration is well-approximated. Will d/c today to [facility] in [place], her family will transport her up there. Departure Discharge to: Longterm Discharge Instructions Home Meds Reported Medications Naproxen Sodium (ALEVE) 220 Mg Capsule, 220 MG PO TID Y for PAIN, CAPSULE 02/13/17 Pantoprazole Sodium (PANTOPRAZOLE SODIUM) 40 Mg Tablet.dr, 40 MG PO BID, TAB.SR 02/13/17 Cephalexin Monohydrate (CEPHALEXIN) 250 Mg Cap, 250 MG PO QDAY, CAP 02/13/17 Docusate Sodium (COLACE) 100 Mg Capsule, 100 MG PO, CAPSULE 1/3/18 Citalopram Hydrobromide (CITALOPRAM HBR) 20 Mg Tablet, 40 MG PO QDAY, #5 TAB 02/13/17 Cyanocobalamin (Vitamin B-12) (VITAMIN B-12) 1,000 Mcg Tablet, 1000 MCG PO 02/13/17 Polyethylene Glycol 3350 (MIRALAX) 17 Gm Powd.pack, 0.5 PACK PO QDAY 11/24/14 Amlodipine Besylate (AMLODIPINE BESYLATE) 5 Mg Tablet, 1 TAB PO QDAY, TAB 11/24/14 Aspirin (ASPIR 81) 81 Mg Tablet.dr, 1 TAB PO QDAY, TAB 11/24/14 Mirabegron (MYRBETRIQ) 25 Mg Tab.er.24h, 1 TAB PO QDAY 11/24/14 Trazodone Hcl (TRAZODONE HCL) 50 Mg Tablet, 1 TAB PO QHS 11/24/14 Hydralazine Hcl (HYDRALAZINE HCL) 25 Mg Tablet, 1 TAB PO QDAY, TAB 11/24/14 Acetaminophen (ACETAMINOPHEN) 500 Mg Tablet, 1 TAB PO TID, TAB 11/24/14 Tramadol Hcl (TRAMADOL HCL) 50 Mg Tablet, 1 TAB PO Q8H 11/24/14 Cholecalciferol (Vitamin D3) (VITAMIN D) 1,000 Unit Tablet, 1 TAB PO QDAY 11/24/14 Tamoxifen Citrate (TAMOXIFEN CITRATE) 20 Mg Tablet, 1 TAB PO QDAY 11/24/14 Discontinued Reported Medications Omeprazole (OMEPRAZOLE) 20 Mg Capsule.dr, 1 CAP PO QDAY, CAP 11/24/14 Citalopram Hydrobromide (CITALOPRAM HBR) 20 Mg Tablet, 1 TAB PO QDAY, #5 TAB 11/24/14 Follow up Referrals: Other Referral - 02/25/17 Sabra needs to have all the ana removed from her scalp on 02/25/17. Diet: Regular Activity: As Tolerated, With Walker Special Instructions: You can shower as desired. Do not vigorously rub your scalp; be VERY gentle when you wash your hair so your scalp will stay stuck down to your head. Shampoo and gentle rubbing is OK. Have all the ana in your scalp removed on 02/25/17. Problem Qualifiers (1) Laceration of scalp without complication: Encounter type: subsequent encounter Qualified Codes: S01.01XD - Laceration without foreign body of scalp, subsequent encounter PETER DUNBAR MD Feb 19, 2017 08:15
[2017-02-19] MEDS: AMOX/CLAV 500 MG TAB PO SCH (08:17)
[2017-02-19] MEDS: MIRABEGRON 25 MG ER TAB PO SCH (08:42)
[2017-02-19] MEDS: PANTOPRAZOLE SOD 40 MG TABEC PO SCH (08:42)
[2017-02-19] MEDS: amLODIPine BESYL(*) 5 MG TAB PO SCH (08:42)
[2017-02-19] MEDS: DOCUSATE SODIUM 100 MG CAP PO SCH (08:42)
[2017-02-19] MEDS: TAMOXIFEN CITRATE 10 MG TAB PO SCH (08:42)
[2017-02-19] MEDS: CEPHALEXIN MONO 250 MG CAP PO SCH (08:43)
[2017-02-19] MEDS: CHOLECALCIFEROL 1000 UNIT TAB PO SCH (08:43)
[2017-02-19] MEDS: CITALOPRAM HYDROBROM 20 MG TAB PO SCH (08:43)
[2017-02-19] MEDS: ASPIRIN 81 MG ENTERIC COATED PO SCH (08:43)
[2017-02-19] MEDS: hydrALAZINE HCL 25 MG TAB PO SCH (08:43)
[2017-02-19] MEDS: POLYETHYLENE GLYCOL 17 GM PKT PO SCH (08:43)
== END 2017-02-19 09:50 | DRG 580 ==
LOC: ER 06:32 → OR 09:10 → MED 14:35 → OBSVTOIN 02-14
PROVIDERS: ADMIT Surgery; ATTEND Surgery
PROC: 0JQ00ZZ Repair Scalp Subcutaneous Tissue and Fascia, Open Approach (ICD-10-PCS; principal; 2017-02-13 11:46)
PROC: 30233N1 Transfusion of Nonautologous Red Blood Cells into Peripheral Vein, Percutaneous Approach (ICD-10-PCS; 2017-02-14)
DX: S01.01XA Laceration without foreign body of scalp, initial encounter (principal); D62 Acute posthemorrhagic anemia; I10 Essential (primary) hypertension; W18.09XA Striking against other object with subsequent fall, initial encounter; Y92.003 Bedroom of unspecified non-institutional (private) residence as the place of occurrence of the external cause; Y93.84 Activity, sleeping; Y99.8 Other external cause status; Z85.3 Personal history of malignant neoplasm of breast; Z98.1 Arthrodesis status
CPT/HCPCS: 36415; 36430; 70450; 72125; 82310; 82374; 82435; 82565; 82947; 84132; 84295; 84520; 85025; 85610; 85730; 86850; 86900; 86901; 86920; 93005; 96361; 96374; 96375; 97162; 97165; 99285; G0378; J0295; J0330; J2270; J2370; J2405; J2543; J2704; J2795; J3010; J3490; J7040; J7050; J7120; J9999; P9016

== ENCOUNTER → 2017-02-13 | Outpatient (CLI) | payer MEDICARE, BC ==
[~2017-02-13] MED LIST: ACET-2043 PO; AMLO-96 PO; ASPI-1471 PO; CEPH250C11 PO; CHOL100052 PO; CITA-139 PO; CYA1000 PO; DOCU-416 PO; FLU45SYR17 IM; HYDR25TA66 PO; MIRA25TA PO; NAPR220C12 PO; OMEP-125 PO; PANT40TA65 PO; PNEU0.5D3 IM; POLY17PO25 PO; TAMO20TA24 PO; TRAM-420 PO; TRAZ-156 PO
[2017-02-14 08:28] VITALS: BMI 23.9
== END ==
LOC: AMB 05:58
PROVIDERS: ATTEND Nurse Practitioner
DX: S01.01XA Laceration without foreign body of scalp, initial encounter (principal); W18.39XA Other fall on same level, initial encounter; Y93.9 Activity, unspecified; Y92.013 Bedroom of single-family (private) house as the place of occurrence of the external cause; Y99.9 Unspecified external cause status
CPT/HCPCS: A0425; A0427